=== PATIENT | male | born 1990 | race African-American/Black ===

== ENCOUNTER 2017-05-23 06:09 | Emergency (ER) | payer OTHER ==
[~2017-05-23 06:09] MED LIST: DICL50 PO
[2017-05-23 06:11] VITALS: BP 153/92; PULSE 70; RESP 16; TEMP 98.1; O2SAT 98
[2017-05-23] MEDS ORDERED: DICL50TA3 PO (06:40)
[2017-05-23] MEDS ORDERED: ACETAMINOPHEN/HYDROcodone 325 MG/5 MG TAB PO ONE (06:45)
--- NOTE | 2017-05-23 06:47 | PD ---
HPI Chief Complaint: Headache Time Seen by Provider: 06:42 Travel History International Travel<30 days: No Contact w/Intl Traveler<30days: No Traveled to known affect area: No History of Present Illness HPI 26-year-old black male presents to emergency department for evaluation of headache for the past 2 days. Patient has not taking anything for his headache yet. Patient is a college student. Denies history of headaches in the past. No recent illness. LOCATION: Frontal QUALITY: Aching SEVERITY: 7-7.5/10 TIMING: Gradual DURATION: 2 days CONTACTS: Not applicable MODIFYING FACTORS: Studying late at night for school as well as working [employer] AND SYMPTOMS: Photophobia and blurred vision. PFSH Past Medical History Medical History: Denies Significant Hx Tetanus Vaccination: < 5 Years Past Surgical History Surgical History: No Previous Surgery Social History Alcohol Use: Yes Tobacco Use: No Allergies-Medications (Allergen,Severity, Reaction): Coded Allergies: No Known Allergies (Unverified , 05/23/17) Reported Meds & Prescriptions Reported Meds & Active Scripts Active Diclofenac Sodium DR (Diclofenac Sodium) 50 Mg Tabdr 50 Mg PO TID Voltaren (Diclofenac Sodium) 50 Mg Tabec 50 Mg PO TID Review of Systems Except as stated in HPI: all other systems reviewed are Neg General / Constitutional: No: Fever, Chills Eyes: Positive: Blurred Vision, Photophobia, Visual changes, No: Diploplia, Drainage, Pain HENT: Positive: Headaches, No: Neck Pain Cardiovascular: No: Chest Pain or Discomfort, Palpitations Respiratory: No: Cough, Shortness of Breath Gastrointestinal: No: Nausea, Vomiting Genitourinary: No: Frequency, Dysuria Musculoskeletal: No: Arthralgias, Limited ROM Neurologic: Positive: Headache, No: Change in Mentation, Paresthesia Physical Exam Narrative GENERAL: [-] SKIN: Focused skin assessment warm/dry. HEAD: Atraumatic. Normocephalic. EYES: Pupils equal and round. No scleral icterus. No injection or drainage. ENT: No nasal bleeding or discharge. Mucous membranes pink and moist. NECK: Trachea midline. No JVD. CARDIOVASCULAR: Regular rate and rhythm. No murmur appreciated. RESPIRATORY: No accessory muscle use. Clear to auscultation. Breath sounds equal bilaterally. GASTROINTESTINAL: Abdomen soft, non-tender, nondistended. Hepatic and splenic margins not palpable. MUSCULOSKELETAL: No obvious deformities. No clubbing. No cyanosis. No edema. NEUROLOGICAL: Awake and alert. No obvious cranial nerve deficits. Motor grossly within normal limits. Normal speech. Normal gait. Normal tandem gait. Negative station and Romberg.. PSYCHIATRIC: Appropriate mood and affect; insight and judgment normal. Data Data Last Documented VS Vital Signs Date Time Temp Pulse Resp B/P Pulse Ox O2 Delivery O2 Flow Rate FiO2 05/23/17 06:11 98.1 70 16 153/92 98 Room Air Orders Acetamin-Hydrocod 325-5 Mg ([place] 5-325 (05/23/17 06:45) MDM Medical Decision Making Medical Screen Exam Complete: Yes Emergency Medical Condition: Yes Medical Record Reviewed: Yes Differential Diagnosis Differential diagnosis: Migraine, tension headache, ocular migraine, occipital neuralgia, sinusitis Narrative Course This is a 26-year-old black male who looks well appearing. He does not appear to be in any distress. His vital signs are normal. He has not taking any medication for his headache that brought him in tonight. His exam is normal. I see no indication for testing at this time. He is given one Lortab 5 milligram by mouth and a prescription for diclofenac. He is advised to recheck in the clinic at school in 24 hours. This is cephalgia Diagnosis Primary Impression: cephalgia Patient Instructions: General Instructions, Narcotic given in the ED Departure Forms: Tests/Procedures, Work Release Special Instructions: No school or work 05/23/17 Additional Instructions: Rest. Sleep. Medication as directed. No school or work today. Recheck with the clinic at school tomorrow. Return to the ER for any problems. Med/Other Pt SpecificInfo: Prescription(s) given Scripts Diclofenac Sodium DR 50 Mg Tabdr50 Mg PO TID #21 TAB Prov:José Miguel Gil MD 05/23/17 Disposition: 01 DISCHARGE HOME Condition: Stable Syed Fernandes May 23, 2017 06:47
== END 2017-05-23 06:50 | disposition home or self-care (01) ==
LOC: NEPD 06:09
DX: R51 Headache (principal); F10.10 Alcohol abuse, uncomplicated
CPT/HCPCS: 99283